=== PATIENT | male | born 2000 | race Caucasian/White ===

== ENCOUNTER 2024-04-28 20:13 | Emergency (ER) | payer OTHER ==
[2024-04-28] MEDS ORDERED: Sodium Chloride 0.9% 100 ML ONE ×2 (20:41→21:48)
[2024-04-28] MEDS ORDERED: levETIRAcetam 500 MG (5 mL) VIAL ONE ×2 (20:41→21:48)
[2024-04-28] MEDS ORDERED: Lorazepam 2 MG/ML VIAL ONE (20:43)
[2024-04-28 20:58] LABS: #Basophils 0.1 thou/uL (0.0-0.2); #Eosinphils 0.3 thou/uL (0.0-0.7); #Lymphocytes 1.5 thou/uL (1.20-3.40); #Monocytes 0.8 thou/uL (0.11-0.59); #Neutrophils 7.4 thou/uL (1.40-6.50); %Eosinophils 2.9 % (0.0-10.0); %Lymphocytes 15.1 % (21.0-51.0); %Monocytes 7.7 % (0.0-10.0); %Neutrophils 73.3 % (42.0-75.0); Hemoglobin 16.5 g/dL (14.0-18.0); Mean Corpuscular HGB CONC 32.9 g/dL (32.0-36.0); Mean Corpuscular Volume 82.2 fl (78.0-98.0); Mean Platelet Volume 9.9 fL (7.4-10.4); Platelet Count 211 10x3/uL (130-400); RBC Distribution Width 11.7 % (11.5-14.5); Red Blood Cell (RBC) Count 6.09 mill/uL (4.70-6.10); White Blood Cell (WBC) Count 10.1 10x3/uL (4.8-10.8)
[2024-04-28 21:10] LABS: Anion Gap 18 mmol/L (10-20); BUN (Urea Nitrogen) 12 mg/dL (8.9-20.6); Calc. Creatinine Clearance 0 mL/min (70-130); Calcium 9.4 mg/dL (7.8-10.44); Carbon Dioxide 20 mmol/L (22-29); Chloride 108 mmol/L (98-107); Estimated GFR 96; Glucose 101 mg/dL (70-105); Potassium 4.2 mmol/L (3.5-5.1); Sodium 142 mmol/L (136-145)
[2024-04-28] MEDS ORDERED: Sodium Chloride 0.9% 2,000 ML ONE (23:33)
== END 2024-04-28 23:59 | disposition short-term general hospital (02) ==
LOC: EEVIPCON 20:13 → NAV ERS 20:13
DX: G40.909 Epilepsy, unspecified, not intractable, without status epilepticus (principal)
CPT/HCPCS: 36415; 80048; 84146; 85025; 96365; 96366; 96375; J1953; J2060; J7030